=== PATIENT | female | born 1960 | race Caucasian/White ===

== ENCOUNTER → 2017-01-20 | Outpatient (CLI) | payer OTHER ==
[~2017-01-20] MED LIST: CELEXA PO; CERTAGEN PO; LIPITOR PO; ZESTORETIC 20/11 TAB PO
--- NOTE | ~2017-01-20 | US6 ---
[facility] A Service of [facility] & [facility] RADIOLOGY TEXT RESULTS PATIENT: TIM MITCHELL LOCATION: [facility] : 56 UNIT #: [id number] AGE: [address]: Kristi Durham MD SEX: F ORDER DR: [id number] [facility] [address] [place], [place] [address] [id number] O MR#: [id number] Acc #: [id number] NAME: TIM MITCHELL : 1960 SEX: F STUDY DATE/TIME: 01/20/2017 10:29 UNIT: [facility] ROOM: STUDY DESCRIPTION: US Abdominal Limited Attending Physician: Kristi Durham M.D. Referring Physician: Kristi Durham M.D. Ordering Physician: Kristi Durham M.D. Primary Care Physician: Kristi Durham M.D. MEDICAL IMAGING REPORT This report is preliminary unless electronic signature is present EXAM Right upper quadrant ultrasound. INDICATIONS Abnormal elevated liver function test starting 10 years ago. Patient does have history of fatty liver as well as cholecystectomy. TECHNIQUE Vale-scale and color Doppler sonographic images were obtained through the right upper quadrant. FINDINGS Limited views of the pancreas are unremarkable. There is coarsening of hepatic echotexture. Liver is enlarged and steatotic. It measures up to about 17.5 cm in craniocaudal dimensions. No obvious focal hepatic lesions are seen. There is no intra or extrahepatic biliary dilatation. Right kidney and is normal in appearance with no solid or cystic renal masses seen and no hydronephrosis identified. Spleen is enlarged measuring up to 14.4 cm in craniocaudal dimensions. Main portal vein is patent with hepatopetal flow. IMPRESSION 1. Hepatomegaly and diffuse hepatic steatosis. 2. Splenomegaly. 3. Patient is noted to have some coarsening of hepatic echotexture. Dictated by... Sonia Peña M.D. THIS IS AN ELECTRONICALLY VERIFIED REPORT Sonia Peña M.D. at 01/22/2017 8:32 AM AFF/bd [facility] A Service of [facility] & [facility] RADIOLOGY TEXT RESULTS PATIENT: TIM MITCHELL LOCATION: [facility] : 56 UNIT #: [id number] AGE: [address]: Kristi Durham MD SEX: F ORDER DR: TD: 01/21/2017 06:28 JOB #: [id number] MEDICAL IMAGING REPORT Page 1 of 1 COPY
== END | disposition home or self-care (01) ==
LOC: CGUS 01-16 09:00
DX: R79.9 Abnormal finding of blood chemistry, unspecified (principal); K76.0 Fatty (change of) liver, not elsewhere classified; R16.2 Hepatomegaly with splenomegaly, not elsewhere classified
CPT/HCPCS: 76705